=== PATIENT | male | born 1950 | race Caucasian/White ===

== ENCOUNTER → 2019-01-20 08:02 | Outpatient (CLI) | payer OTHER, SELFPAY ==
[2019-01-20 09:24] LABS: Absolute Lymphocyte Count 1.15 X10^3/uL (0.83-4.51); Absolute Neutrophil Count 2.9 X10^3/uL (2.0-7.7); Basophil# 0.02 X10^3/uL; Basophil% 0.4 % (0-1); Eosinophils% 2.2 % (0-5); Hematocrit 46.9 % (40-54); Hemoglobin 15.8 g/dL (13.0-16.5); Lymphocyte # 1.15 X10^3/ul (4.0); Lymphocyte % 25.1 % (19-41); Mean Corp Hgb Conc 33.7 g/dL (32-36); Mean Corpuscular Hgb 31.6 pg (27.0-32.0); Mean Corpuscular Volume 93.8 fL (80-94); Monocyte# 0.42 X10^3/uL; Monocyte% 9.2 % (0-10); NRBC Flagged by Analyzer 0 % (0-5); Neutrophil # 2.88 X10^3/uL (2.7-7.7); Neutrophil % 62.7 % (47-70); Platelet Count 186 K/mm3 (150-450); RBC Distribution Width CV 11.7 % (11.6-14.6); RBC Distribution Width SD 40.1 fl (35.1-43.9); White Blood Count 4.6 K/mm3 (4.4-11.0)
[2019-01-20 10:43] LABS: ALB/GLOB Ratio 1.2 RATIO (0.9-2.4); AST(SGOT) 21 U/L (15-37); Alanine Aminotransfer ALT/SGPT 22 U/L (16-61); Albumin, Serum 3.8 g/dL (3.2-5.0); Alkaline Phosphatase 42 U/L (45-117); Anion Gap 7 (5-15); BUN 22 mg/dL (7-18); BUN/Creat Ratio 22.2 RATIO (10-20); Calcium,Total 8.8 mg/dL (8.5-10.1); Chloride 105 mmol/L (98-107); Cholesterol 183 mg/dL (200); Creatinine, Serum 0.99 mg/dL (0.70-1.30); EST Glomerular Filtration Rate 80 mL/min (>60); Est Glom Filt Rate - Afr Amer 97 mL/min (>60); Globulin 3.1 g/dL (2.2-4.2); Glucose 87 mg/dL (74-106); High Density Lipoprotein 83 mg/dL; PSA,Total - Annual Screen 2.47 ng/mL (0.00-4.00); Potassium 4.2 mmol/L (3.5-5.1); Protein, Total 6.9 g/dL (6.4-8.2); Sodium Level 142 mmol/L (136-145); Triglycerides 41 mg/dL; Very Low Density Lipoprotein 8 mg/dL (5-40)
== END ==
PROVIDERS: Family Provider Family Medicine; PCP Family Medicine; Referring Provider Family Medicine; Visit Provider Family Medicine
DX: Z00.01 Encounter for general adult medical examination with abnormal findings (principal); R06.00 Dyspnea, unspecified; Z12.11 Encounter for screening for malignant neoplasm of colon; R73.01 Impaired fasting glucose; E78.5 Hyperlipidemia, unspecified
CPT/HCPCS: 36415; 80053; 80061; 84153; 85025; G0103

== ENCOUNTER → 2019-02-13 09:34 | Outpatient (CLI) | payer OTHER, SELFPAY ==
--- NOTE | 2019-02-13 09:37 | STEWCON_ITS ---
Reason For Study: CHEST PAIN Stress Results Protocol: Stress Echocardiogram Maximum Predicted HR: 153 bpm Target HR: 130 bpm % Maximum Predicted HR: 89 % DurationHeart Rate Stage (mm:ss) (bpm) BP Comment BASELINE 73 130/805CC DILUTED DEFINITY USED DURING STRESS ASHA PROTOCOL- STAGE 1 3:00 96 140/88NO SX ASHA PROTOCOL- STAGE 2 3:00 108 160/80NO SX ASHA PROTOCOL- STAGE 3 3:00 122 180/88NO SX ASHA PROTOCOL- STAGE 4 1:01 136 / LEG FATIGUE RECOVERY 82 128/78 Stress Duration: 10:01 mm:ss Maximum Stress HR: 136 bpm METS: 13 Baseline Echocardiogram Findings Stress Echo Wall motion Data Resting WM Intermediate WM Stress WM Resting Wall Motion Wall Motion Stress All segments Normal. All segments Hyperkinetic. Ejection Fraction 55 %. Ejection Fraction 70 %. Stress Results Heart rate response: Appropriate Blood pressure response to exercise: Normal resting blood pressure-appropriate response Arrhythmias: Rare PVC during exercise Functional capacity: Good Stopped secondary to: Leg discomfort. EKG Data ECG Baseline: NSR. ECG Stress: No Obvious ECG Changes. Symptoms with Stress No complaint of chest discomfort during exercise or recovery. Interpretation Summary Technically difficult study Contrast injection performed Negative ( Adequate) Stress Echocardiogram Ordering Physician: Yolande Garcia Referring Physician: Yolande Garcia Performed By: Emily Contreras, CONOR, RVT
== END ==
PROVIDERS: Family Provider Family Medicine; PCP Family Medicine; Referring Provider Family Medicine; Visit Provider Family Medicine
DX: R06.09 Other forms of dyspnea (principal)
CPT/HCPCS: 93017; 93350; Q9957; A4216; C8928

== ENCOUNTER 2019-02-25 09:37 | Emergency (ER) | payer OTHER, SELFPAY ==
[2019-02-25 09:40] VITALS: BP 137/85; PULSE 98; RESP 20; TEMP 37.6; O2SAT 93; BMI 21.2
--- NOTE | 2019-02-25 09:51 | RAD_ITS ---
STUDY: X-RAY CHEST REASON FOR EXAM: Male, 68 years old. Cough TECHNIQUE: Frontal and lateral views of the chest COMPARISON: None. FINDINGS: The lungs are clear. There are no pleural effusions. There is no pneumothorax. The heart is normal in size. The visualized osseous structures are within normal limits. RAD/Chest PA and Lateral IMPRESSION: No acute thoracic pathology. Electronically Signed: Williams Mckay, at 10:17 EDT Tel , Service support ,
--- NOTE | 2019-02-25 09:52 | EKG12_ITS ---
Test Reason : Blood Pressure : / mmHG Vent. Rate : 091 BPM Atrial Rate : 091 BPM P-R Int : 168 ms QRS Dur : 086 ms QT Int : 360 ms P-R-T Axes : 076 056 066 degrees QTc Int : 442 ms Normal sinus rhythm Normal ECG Confirmed by LAUREN CRONIN, KONG ([id number]), website/blog editor VERONA CHAVIS ([id number]) on 02/27/2019 11:03:27 AM Referred By: [place]IS Confirmed By:KONG AGUILAR MD
--- NOTE | 2019-02-25 09:52 | ED.VIS.GEN ---
History of Present Illness Chief Complaint: Cough Informant: Patient, Family Onset: Days Context: Gradual Onset Current Severity: Mild Maximum Severity: Moderate Narrative: Patient presents with cough and congestion ongoing for the past 2 to 3 days. He states he was sick about a week ago but improved. He did get a flu shot 4 days ago. Over the past 3 days he has had chest congestion with cough. He has bringing up sputum but does not look at it. He has noted chills at home but no fever. He has no history of COPD or asthma. He does not feels if he is wheezing. He states he only has chest pain with cough. He did have a recent stress test that was unremarkable. Past Medical History - Allergies and Home Meds Allergies/Adverse Reactions: Allergies bee venom protein (honey bee) Allergy (Verified 02/25/19 09:40) Anaphylaxis Penicillins Allergy (Verified 02/25/19 09:40) Swelling Wpjcsxz-Cub-Uhv Reductase Inhibitor Allergy (Verified 02/25/19 09:40) Other LEG CRAMPS, CHEST TIGHTNESS Primary Care Physician: Yolande Garcia MD [Primary Care Provider] - Prior records reviewed: Yes Past Medical History: - - Reviewed Lives: Spouse/ Significant Other Review of Systems General: Reports: Chills. Denies: Fever Eyes: Denies: Visual changes - bilaterally ENT: Reports: Sore throat. Denies: Bilateral ear pain Cardiovascular: Reports: Chest pain - With cough only Respiratory: Reports: Cough, Sputum. Denies: Dyspnea Gastrointestinal: Denies: Abdominal pain, Nausea, Vomiting, Diarrhea Genitourinary: Denies: Dysuria Musculoskeletal: Reports: Myalgias Skin: Denies: Rash Neurological: Denies: Headache Hematologic: Denies: Easy bruising Allergy: Denies: Uticaria Physical Exam Vital Signs/Narrative: Vital Signs Temp Pulse Resp BP Pulse Ox 02/25/19 09:40 99.7 F H 98 20 H 137/85 H 93 Inital Vital Signs reviewed: Yes General: Well nourished, Well developed Head: Normocephalic Eyes: Perrl, EOMI ENT: Moist mucous membranes, TM's clear, - - Mild posterior pharyngeal drainage. Uvula midline. Neck: Supple, Nontender, - - Mild anterior cervical lymphadenopathy bilaterally. Cardiovascular: Regular rate, Regular rhythm Respiratory: No distress, CTA bilaterally Abdomen: Soft, Nontender Extremities: Nontender Skin: Normal color, No rash Neurological: Alert, Oriented x3 Psychological: Normal affect Diagnostic/Tx/Re-eval Chest X-Ray - ED: 2 View, Read by ED Physician, Chronic Changes, No Infiltrates - EKG Initial EKG Interpretation: Sinus Rhythm - Sinus at 91 with no acute ischemia. Normal intervals. - Medical Decision Making X-ray reveals no focal infiltrate. He will be treated with a course of doxycycline along with Mucinex. He will be given albuterol inhaler here. He states his PCP has been talking about getting him an inhaler due to some recent dyspnea on exertion. He will try this to see if it helps with those situations as well. He will be written off work for tomorrow. He is to return for worsening symptoms or concerns. ED Disposition - Plan for ED Patient: Disposition: Home or Assisted Living Diagnosis: Bronchitis Instructions: BRONCHITIS, Antiobiotic Treatment (Adult) Prescriptions: Doxycycline 100 mg PO BID #20 capsule Guaifenesin [Mucinex] 1,200 mg PO BID PRN PRN #[id number] PRN Reason: Congestion Referrals: Yolande Garcia MD [Primary Care Provider] - 1 Week if not improving
[2019-02-25] MEDS: Doxycycline 100 MG CAPSULE PO (10:37)
[2019-02-25] MEDS: guaiFENesin 1,200 MG Tablet 1200 MG PO (10:37)
== END 2019-02-25 10:43 | disposition home or self-care (01) ==
PROVIDERS: Emergency Provider Emergency Medicine; Family Provider Family Medicine; PCP Family Medicine
DX: J40 Bronchitis, not specified as acute or chronic (principal); Z88.0 Allergy status to penicillin; Z88.8 Allergy status to other drugs, medicaments and biological substances
CPT/HCPCS: 71046; 93005; 94640; 99283

== ENCOUNTER 2019-11-05 18:22 | Emergency (ER) | payer MEDICARE, OTHER, SELFPAY ==
[2019-11-05 18:24] VITALS: BP 155/102; PULSE 78; RESP 18; TEMP 37.1; O2SAT 97; BMI 19.8
--- NOTE | 2019-11-05 19:19 | ED.DCSUM_ITS ---
History of Present Illness Chief Complaint: General Illness Detail of Chief Complaint: Left-sided abdominal pain Informant: Patient, Significant Other Onset: Hours - Less than 1 hour ago Context: Sudden Onset Timing: Continuous Quality: Pain Location: Left side of abdomen Current Severity: Mild - Patient reports 70+ percent reduction of pain since onset Maximum Severity: Severe Worsened by: Nothing Relieved by: Nothing Associated Symptoms: No associated symptoms Narrative: Patient is 69-year-old male who walked to the mailbox to get mail at 1800. Patient states he abrupt onset of left-sided abdominal pain. Does have a remote history of ureterolithiasis. He denies history of constipation, diverticulosis or diverticulitis. He denies dysuria, frequency, urgency or hematuria. He denies trauma. He denies rash. He denies fever, chills or night sweats. He denies prior history of pain similar to this. He has no other complaints. He has not taken anything for the pain. Prior similar symptoms: No Recent Illness/Hospitalization: No - Past Medical History (1) History of ureterolithiasis Status: Acute Past Medical History - Allergies and Home Meds Allergies/Adverse Reactions: Allergies bee venom protein (honey bee) Allergy (Verified 11/05/19 18:23) Anaphylaxis Penicillins Allergy (Verified 11/05/19 18:23) Swelling Vtouqle-Pxq-Fem Reductase Inhibitor Allergy (Verified 11/05/19 18:23) Other LEG CRAMPS, CHEST TIGHTNESS maple Allergy (Uncoded 11/05/19 18:23) Anaphylaxis Primary Care Physician: Yolande Garcia MD [Primary Care Provider] - Prior records reviewed: Yes Surgical History: no surgical history Lives: Spouse/ Significant Other Smoking Status: Former smoker Alcohol: None Drugs: None Review of Systems General: Denies: Chills, Fever, Malaise, Sweats Eyes: Denies: Visual changes - bilaterally, Blurred Vision - bilaterally ENT: Denies: Rhinorrhea, Sore throat Cardiovascular: Denies: Chest pain, Palpitations Respiratory: Denies: Dyspnea, Cough, Dyspnea on exertion Gastrointestinal: Reports: Abdominal pain. Denies: Nausea, Vomiting, Diarrhea, Constipation, Melena, Hematochezia, -, - Genitourinary: Denies: Dysuria, Hematuria, Frequency Musculoskeletal: Denies: Myalgias, Arthralgias, Neck pain, Back pain, Swelling, Extremity Pain Skin: Denies: Rash, Wounds Neurological: Denies: Headache, Weakness, Numbness Endocrine: Denies: Polyuria, Polydipsia Hematologic: Denies: Easy bruising, Easy bleeding Physical Exam Vital Signs/Narrative: Vital Signs Temp Pulse Resp BP Pulse Ox 11/05/19 18:24 98.7 F 78 18 155/102 H 97 Inital Vital Signs reviewed: Yes General: Well nourished, Well developed, No Acute Distress Head: Normocephalic, Atraumatic Eyes: Perrl, EOMI. Negative for: Pale conjunctiva, Scleral icterus ENT: Moist mucous membranes, No rhinorrhea, TM's clear Neck: Supple, Nontender, No lymphadenopathy, No JVD Cardiovascular: Regular rate, Regular rhythm, No murmurs, Normal S1, Normal S2 Respiratory: No distress, CTA bilaterally, Chest tenderness - Left side without crepitus or subcutaneous air. Abdomen: Soft, Nondistended, Normal bowel sounds, No masses, Tender. Negative for: Nontender, Guarding, Rebound tenderness, Hyperactive bowel sounds, Hypoactive bowel sounds, Hepatomegaly, Splenomegaly, Mass, Pulsatile mass, Ventral hernia, Umbilical hernia Rectal: Deferred Back: Nontender, Normal Inspection. Negative for: CVA tenderness, Spinal tenderness Extremities: Nontender, No edema. Negative for: Tenderness, Edema Skin: Normal color, No rash Neurological: Alert, Oriented x3, Cranial nerves II-XII grossly intact, Normal Strength, Normal Sensation Psychological: Normal affect, Normal Mood Diagnostic/Tx/Re-eval Laboratory Results 11/05/19 11/05/19 11/05/19 19:21 19:21 20:00 WBC 4.5 RBC 4.48 L Hgb 14.3 Hct 42.4 MCV 94.6 H MCH 31.9 MCHC 33.7 RDW Std Deviation 39.9 RDW Coeff of José Manuel 11.6 Plt Count 218 MPV 9.4 Immature Gran % (Auto) 0.200 Neut % (Auto) 64.4 Lymph % (Auto) 25.2 [place] % (Auto) 7.5 Eos % (Auto) 2.0 Baso % (Auto) 0.7 Absolute Neuts (auto) 2.9 Absolute Lymphs (auto) 1.14 Nucleated RBC % 0 Sodium 139 Potassium 3.7 Chloride 104 Carbon Dioxide 30.0 Anion Gap 5 BUN 21 H Creatinine 0.94 Estim Creat Clear Calc 62.73 Est GFR (MDRD) Af Amer 103 Est GFR (MDRD) Non-Af 85 BUN/Creatinine Ratio 22.3 H Glucose 94 Calcium 8.9 Urine Color Yellow Urine Clarity Clear Urine pH 5.0 Ur Specific [place] 1.020 Urine Protein Negative Urine Glucose (UA) Normal Urine Ketones 5 H Urine Occult Blood Negative Urine Nitrite Negative Urine Bilirubin Negative Urine Urobilinogen Normal Ur Leukocyte Esterase Negative Patient's work-up was unremarkable. He was reexamined at 2014. His abdomen is soft nontender. Patient was informed the cause of his pain is unknown. No imaging was obtained since his work-up to this point is negative and his pain has essentially resolved. - Medical Decision Making Frontal diagnosis includes obstipation, ureterolithiasis, diverticulitis, perforated viscus. Since patient has no guarding or rebound tenderness doubt acute diverticulitis or perforated viscus. Blood work and UA were obtained. ED Disposition - Plan for ED Patient: Disposition: Home or Assisted Living Diagnosis: Left sided abdominal pain of unknown cause Instructions: ED Unknown Causes of Abdominal Pain Male Referrals: Yolande Garcia MD [Primary Care Provider] - As Needed
[2019-11-05 19:22] VITALS: BP 107/89; PULSE 68; RESP 16; O2SAT 98
[2019-11-05 19:37] LABS: Absolute Lymphocyte Count 1.14 X10^3/uL (0.83-4.51); Absolute Neutrophil Count 2.9 X10^3/uL (2.0-7.7); Basophil# 0.03 X10^3/uL; Basophil% 0.7 % (0-1); Eosinophil# 0.09 X10^3/uL; Hematocrit 42.4 % (40-54); Hemoglobin 14.3 g/dL (13.0-16.5); Lymphocyte # 1.14 X10^3/ul (4.0); Lymphocyte % 25.2 % (19-41); Mean Corp Hgb Conc 33.7 g/dL (32-36); Mean Corpuscular Hgb 31.9 pg (27.0-32.0); Mean Corpuscular Volume 94.6 fL (80-94); Mean Platelet Vol. 9.4 fl (6.2-12.0); Monocyte# 0.34 X10^3/uL; Monocyte% 7.5 % (0-10); NRBC Flagged by Analyzer 0 % (0-5); Neutrophil # 2.91 X10^3/uL (2.7-7.7); Neutrophil % 64.4 % (47-70); Platelet Count 218 K/mm3 (150-450); RBC Distribution Width CV 11.6 % (11.6-14.6); RBC Distribution Width SD 39.9 fl (35.1-43.9); Red Blood Count 4.48 M/mm3 (4.6-6.2); White Blood Count 4.5 K/mm3 (4.4-11.0)
[2019-11-05 19:57] LABS: Anion Gap 5 (5-15); BUN 21 mg/dL (7-18); BUN/Creat Ratio 22.3 RATIO (10-20); Calcium,Total 8.9 mg/dL (8.5-10.1); Chloride 104 mmol/L (98-107); Creatinine, Serum 0.94 mg/dL (0.70-1.30); EST Glomerular Filtration Rate 85 mL/min (>60); Est Glom Filt Rate - Afr Amer 103 mL/min (>60); Estimated Creatinine Clearance 62.73 ml/min; Glucose 94 mg/dL (74-106); Potassium 3.7 mmol/L (3.5-5.1); Sodium Level 139 mmol/L (136-145)
[2019-11-05 20:09] LABS: Bacteria 0 SEEN /hpf (None Seen); Color, Urine Yellow (Yellow); Glucose, Dipstick Normal (Normal); Ketone-Dipstick 5 mg/dl (Negative); Leukocyte Esterase-Dipstick Negative /ul (Negative); Mucous, Urine 0 SEEN /hpf (<or=2+); Nitrite-Dipstick Negative (Negative); Occult Blood-Urine Negative /ul (Negative); Protein-Dipstick Negative (Negative); Red Blood Cells-Urine 0 SEEN /hpf (0-5); Squamous Epithelial Cells - UA 0 SEEN /hpf (0-5); Urine Bilirubin Dipstick Negative (Negative); Urine Clarity Clear (Clear); Urine Urobilinogen Normal (Normal); White Blood Cells 0 SEEN /hpf (0-5)
[2019-11-05 20:59] VITALS: BP 179/85
== END 2019-11-05 21:00 | disposition home or self-care (01) ==
PROVIDERS: Emergency Provider Emergency Medicine; PCP Family Medicine
DX: R10.9 Unspecified abdominal pain (principal); Z87.442 Personal history of urinary calculi; Z87.891 Personal history of nicotine dependence; Z88.0 Allergy status to penicillin; Z88.8 Allergy status to other drugs, medicaments and biological substances
CPT/HCPCS: 80048; 81001; 85025; 99283; A4216

== ENCOUNTER → 2022-02-01 | Outpatient (CLI) | payer MEDICARE, OTHER, SELFPAY ==
[2022-02-01 09:58] LABS: Absolute Lymphocyte Count 0.98 X10^3/uL (0.83-4.51); Absolute Neutrophil Count 3.1 X10^3/uL (2.0-7.7); Basophil# 0.02 X10^3/uL; Basophil% 0.4 % (0-1); Eosinophil# 0.05 X10^3/uL; Eosinophils% 1.1 % (0-5); Hematocrit 48.4 % (40-54); Hemoglobin 16.6 g/dL (13.0-16.5); Lymphocyte # 0.98 X10^3/ul (0.83-4.51); Lymphocyte % 21.8 % (19-41); Mean Corp Hgb Conc 34.3 g/dL (32-36); Mean Corpuscular Hgb 31.5 pg (27.0-32.0); Mean Corpuscular Volume 91.8 fL (80-94); Monocyte# 0.32 X10^3/uL; Monocyte% 7.1 % (0-10); NRBC Flagged by Analyzer 0 % (0-5); Neutrophil # 3.12 X10^3/uL (2.7-7.7); Neutrophil % 69.4 % (47-70); Platelet Count 188 K/mm3 (150-450); RBC Distribution Width CV 11.5 % (11.6-14.6); RBC Distribution Width SD 39.1 fl (35.1-43.9); Red Blood Count 5.27 M/mm3 (4.6-6.2); White Blood Count 4.5 K/mm3 (4.4-11.0)
[2022-02-01 10:37] LABS: Hemoglobin A1c 5.3 % (3.8-5.6)
[2022-02-01 10:39] LABS: Vitamin B12 706 pg/mL (211-911)
[2022-02-01 10:49] LABS: ALB/GLOB Ratio 1.2 RATIO (0.9-2.4); AST(SGOT) 19 U/L (15-37); Alanine Aminotransfer ALT/SGPT 20 U/L (16-61); Albumin, Serum 3.9 g/dL (3.2-5.0); Alkaline Phosphatase 47 U/L (45-117); Anion Gap 6 (5-15); BUN 18 mg/dL (7-18); BUN/Creat Ratio 17.5 RATIO (10-20); Chloride 106 mmol/L (98-107); Cholesterol 188 mg/dL (200); Creatinine, Serum 1.03 mg/dL (0.70-1.30); EST Glomerular Filtration Rate 76 mL/min (>60); Est Glom Filt Rate - Afr Amer 92 mL/min (>60); Globulin 3.3 g/dL (2.2-4.2); Glucose 93 mg/dL (74-106); High Density Lipoprotein 71 mg/dL; Potassium 3.8 mmol/L (3.5-5.1); Protein, Total 7.2 g/dL (6.4-8.2); Sodium Level 142 mmol/L (136-145); Thyroid Stim Hormone (TSH) 1.93 uIU/mL (0.358-3.74); Triglycerides 70 mg/dL; Very Low Density Lipoprotein 14 mg/dL (5-40)
== END | disposition home or self-care (01) ==
LOC: LAB 09:38
PROVIDERS: PCP Family Medicine; Visit Provider Family Medicine
DX: R41.3 Other amnesia (principal); E78.5 Hyperlipidemia, unspecified; R73.9 Hyperglycemia, unspecified
CPT/HCPCS: 36415; 80053; 80061; 82607; 83036; 84443; 85025

== ENCOUNTER → 2022-02-08 | Outpatient (CLI) | payer MEDICARE, OTHER, SELFPAY ==
--- NOTE | 2022-02-08 14:43 | MRI_ITS ---
STUDY: MRI BRAIN WITH AND WITHOUT CONTRAST REASON FOR EXAM: Male, 71 years old. MEMORY LOSS, CHRONIC HEADACHE TECHNIQUE: Standardized multiplanar fat and water weighted pulse sequences were obtained. CLARISCAN 14mL was administered for the contrast portion of the examination. COMPARISON: None. FINDINGS: Mild atrophy and moderate periventricular white matter ischemic changes without mass effect or shift.. Normal bilateral basal ganglia. Prominent perivascular space in the right thalamus.. There is no extra-axial fluid accumulation. Normal flow voids within the major intracranial circulation suggesting patency by spin echo criteria. Normal venous enhancement. There is no enhancing intra-axial or extra-axial abnormality. Normal sella turcica, pituitary gland, infundibular stalk, optic chiasm and hypothalamus. Normal tectal plate and pineal gland. Normal midbrain, young and medulla. Normal cerebellum. Normal basal cisterns. Normal bilateral temporal bones. Normal bilateral internal auditory canals. No demonstrated orbital abnormality, within the constraints of a routine brain study. Normal visualized paranasal sinuses. Normal calvarium and skull base. Normal visualized soft tissue structures. Normal visualized upper cervical spine. MRI/Brain W/WO Contrast IMPRESSION: Atrophy and moderate periventricular white matter ischemic changes. No evidence for acute infarct. No evidence for obstructive hydrocephalus or mass. No enhancing lesions following contrast administration Electronically Signed: Fabricio Garcias MD at 16:29 EDT ,
== END | disposition home or self-care (01) ==
LOC: MRI 14:20
PROVIDERS: PCP Family Medicine; Visit Provider Family Medicine
DX: R41.3 Other amnesia (principal)
CPT/HCPCS: 70553; A9575

== ENCOUNTER → 2023-05-16 | Outpatient (CLI) | payer MEDICARE, OTHER, SELFPAY ==
--- OUTSIDE RECORDS SUMMARY | 2023-05-16 12:54 | XMS RPT_ITS | CCD ---
Author Name Unknown Address [address] [place] [address] Organization [facility] Results Test Name Value Interpretation Reference Range Facil ity Summary Purpose Family History No Family History Records Found Advance Directives No Advanced Directives Records Found Additional Source Comments (unrecognized sect ion and content) No Status Records Found INFORMATION SOURCE (unrecogn ized section and content) FOR RECORDS PERTAINING TO PATIENTS WHO ARE OR HAVE BEEN ENROLLED IN A CHEMICAL DEPENDENCY/SUBSTANCEABUSE PROGRAM, SOME INFORMATION MAY BE OMITTED. This clinical summary was aggregated from multiple sources. Caution should be exercised in using it in the provision of clinical care. This summary normalizes information from multiple sources, and as a consequence, information in this document may materially change the coding, format and clinical context of patient data. In addition, data may be omitted in some cases. CLINICAL DECISIONS SHOULD BE BASED ON THE PRIMARY CLINICAL RECORDS. [employer]. provides no warranty or guarantee of the accuracy or completeness of information in this document.
== END | disposition home or self-care (01) ==
LOC: SL 12:21
PROVIDERS: PCP Family Medicine; Referring Provider Family Medicine; Visit Provider Family Medicine
DX: G47.00 Insomnia, unspecified (principal); R51.9 Headache, unspecified; G47.30 Sleep apnea, unspecified
CPT/HCPCS: 95806

== ENCOUNTER → 2023-06-09 | Outpatient (CLI) | payer MEDICARE, OTHER, SELFPAY ==
--- NOTE | 2023-06-09 10:05 | ECHOD_ITS ---
Reason For Study: central sleep apnea Procedure This was a 2D Doppler, Color Flow transthoracic echocardiogram. The study was technically difficult. Respiratory interference. Exam performed in department. Left Ventricle Normal size and thickness. The left ventricular ejection fraction is 65 %. Normal diastology for age. Right Ventricle Normal right ventricle. Atria The left and right atria are normal. Mitral Valve Trivial mitral valve insufficiency. Tricuspid Valve Mild tricuspid valve insufficiency. Normal pulmonary artery pressure. Aortic Valve Trisinus/trileaflet aortic valve. Mild (1+) aortic valve insufficiency. Pulmonic Valve The pulmonic valve is not well visualized. Great Vessels Mildly dilated aortic root. Pericardium/Pleural No pericardial effusion. MMode/2D Measurements & Calculations LVIDd: 4.6 cm IVSd: 0.75 cm Ao root diam: 4.2 cm LVIDs: 3.1 cm LVPWd: 0.94 cm RVDd: 3.2 cm FS: 32.9 % LAV(MOD-bp): 47.7 ml LVAd ap4: 30.4 cm2 LVAd ap2: 25.1 cm2 LAV(MOD-bp) Indexed: 26.8 ml/m2 LVLd ap4: 8.3 cm LVLd ap2: 7.0 cm LAV(MOD-sp2): 46.8 ml EDV(MOD-sp4): 93.2 ml EDV(MOD-sp2): 73.5 ml LAV(MOD-sp4): 44.4 ml EDV(sp4-el): 93.9 ml EDV(sp2-el): 76.3 ml LVAs ap4: 15.1 cm2 LVAs ap2: 13.4 cm2 LVLs ap4: 6.4 cm LVLs ap2: 5.6 cm ESV(MOD-sp4): 30.2 ml ESV(MOD-sp2): 27.4 ml ESV(sp4-el): 30.2 ml ESV(sp2-el): 27.2 ml EF(MOD-sp4): 67.7 % EF(MOD-sp2): 62.7 % EF(sp4-el): 67.8 % SV(MOD-sp4): 63.1 ml SV(MOD-sp2): 46.1 ml SV(sp4-el): 63.7 ml LA dimension(2D): 3.7 cm LA A4 area: 16.8 cm2 RA A4 area: 16.4 cm2 TAPSE: 2.8 cm Time Measurements MV dec time: 0.26 sec Doppler Measurements & Calculations MV E max chris: 57.2 cm/sec Lat Peak E' Chris: 10.5 cm/sec Med Peak E' Chris: 7.4 cm/sec MV A max chris: 71.7 cm/sec E/E' lat: 5.4 E/E' med: 7.7 MV E/A: 0.80 MV V2 max: 82.6 cm/sec MV P1/2t max chris: 71.4 cm/sec Ao V2 max: 108.9 cm/sec MV max P.7 mmHg MV P1/2t: 93.2 msec Ao max P.8 mmHg MV V2 mean: 48.2 cm/sec MV dec slope: 224.5 cm/sec2 Ao V2 mean: 74.9 cm/sec MV mean P.0 mmHg Ao mean P.6 mmHg MV V2 VTI: 27.5 cm MVA(P1/2t): 2.4 cm2 Ao V2 VTI: 27.5 cm AV (velocity ratio): 0.75 AI max chris: 423.4 cm/sec LV V1 max: 87.0 cm/sec PA V2 max: 76.4 cm/sec AI max P.0 mmHg LV V1 max P.0 mmHg PA V2 mean: 52.4 cm/sec AI dec slope: 141.9 cm/sec2 LV V1 mean P.7 mmHg AI P1/2t: 873.7 msec LV V1 mean: 60.3 cm/sec LV V1 VTI: 20.7 cm TR max chris: 264.1 cm/sec TR max P.9 mmHg ECHO/Echo Complete Interpretation Summary The left ventricular ejection fraction is 65 %. Mild (1+) aortic valve insufficiency. Mildly dilated aortic root. Mild tricuspid valve insufficiency. Ordering Physician: Yolande Garcia Referring Physician: Yolande Garcia Performed By: Emily Contreras, CONOR, RVT
== END | disposition home or self-care (01) ==
PROVIDERS: PCP Family Medicine; Referring Provider Family Medicine; Visit Provider Family Medicine
DX: G47.31 Primary central sleep apnea (principal)
CPT/HCPCS: 93306

== ENCOUNTER → 2023-06-21 | Outpatient (CLI) | payer MEDICARE, OTHER, SELFPAY ==
--- OUTSIDE RECORDS SUMMARY | 2023-06-21 21:05 | XMS RPT_ITS | CCD ---
Author Name Unknown Address [address] [place] [address] Organization [facility] Results Test Name Value Interpretation [...] BE BASED ON THE PRIMARY CLINICAL RECORDS. [employer]. provides no warranty or guarantee of the accuracy or completeness of information in this document.
== END | disposition home or self-care (01) ==
LOC: SL 20:11
PROVIDERS: PCP Family Medicine; Referring Provider Family Medicine; Visit Provider Family Medicine
DX: G47.31 Primary central sleep apnea (principal)
CPT/HCPCS: 95811

== ENCOUNTER → 2023-07-21 | Outpatient (CLI) | payer MEDICARE, OTHER, SELFPAY | END | disposition home or self-care (01) | LOC: SL 13:10 | PROVIDERS: PCP Family Medicine; Referring Provider Family Medicine; Visit Provider Family Medicine | DX: Z46.89 Encounter for fitting and adjustment of other specified devices (principal) ==

== ENCOUNTER 2023-10-20 13:48 | Emergency (ER) | payer MEDICARE, OTHER, SELFPAY ==
[2023-10-20 13:49] VITALS: BP 127/74; PULSE 94; RESP 15; TEMP 36.7; O2SAT 96; BMI 20.5
[2023-10-20 14:33] VITALS: BP 124/71; PULSE 80; RESP 14; TEMP 37.7; O2SAT 97
--- NOTE | 2023-10-20 14:47 | CT_ITS ---
STUDY: CT ABDOMEN AND PELVIS WITH CONTRAST REASON FOR EXAM: Male, 73 years old. Abdominal pain. Possible hernia. RADIATION DOSAGE (If Supplied By Facility): CTDIvol = ( 11.72 ) mGy, DLP = ( 465.44 ) mGycm TECHNIQUE: Transaxial images were obtained from the dome of the diaphragm to the symphysis pubis without oral contrast. IV 100mL Isovue-300 was administered. Sagittal and coronal images were reconstructed. Individualized dose optimization techniques were used for this CT. COMPARISON: None. FINDINGS: The visualized lung bases are unremarkable. Coronary artery calcification. Scattered small hepatic cysts. Normal gallbladder and extrahepatic biliary system. Normal spleen. Normal pancreas. Normal bilateral adrenal glands. Bilateral parapelvic cysts. Normal visualized stomach. Normal small intestine. There are multiple colonic diverticula consistent with diverticulosis. The appendix is visualized and appears normal. There is diffuse atherosclerotic calcification of the abdominal aorta, without a demonstrated aneurysm. Normal inferior vena cava. Normal retroperitoneum. Mildly distended urinary bladder. Several tiny calcific densities are seen at the base of the bladder which may represent calculi. The prostate is enlarged. It measures 4 cm x 4.4 cm. This causes indentation of the bladder base. Small bilateral inguinal lymph nodes. No evidence of inguinal hernia. The patient is status post repair of a right inguinal hernia with mesh. There are diffuse degenerative changes of the visualized lumbar spine. Dextroscoliosis. CT/Abdomen/Pelvis W IV Cont ONLY IMPRESSION: No evidence of hernia. Distended urinary bladder. Tiny stones are seen at the bladder base. Prostatic enlargement. Electronically Signed: Barron Vogt MD at 15:23 EDT ,
[2023-10-20 14:48] LABS: Absolute Lymphocyte Count 0.37 X10^3/uL (0.83-4.51); Absolute Neutrophil Count 3.5 X10^3/uL (2.0-7.7); Basophil# 0.02 X10^3/uL; Basophil% 0.5 % (0-1); Hematocrit 41.7 % (40-54); Hemoglobin 14.3 g/dL (13.0-16.5); Lymphocyte # 0.37 X10^3/ul (0.83-4.51); Lymphocyte % 8.4 % (19-41); Mean Corp Hgb Conc 34.3 g/dL (32-36); Mean Corpuscular Volume 90.3 fL (80-94); Mean Platelet Vol. 9.7 fl (6.2-12.0); Monocyte# 0.52 X10^3/uL; Monocyte% 11.8 % (0-10); NRBC Flagged by Analyzer 0 % (0-5); Neutrophil # 3.49 X10^3/uL (2.7-7.7); Neutrophil % 79.3 % (47-70); POSITIVE DIFFERENTIAL YES; Platelet Count 148 K/mm3 (150-450); RBC Distribution Width CV 11.5 % (11.6-14.6); RBC Distribution Width SD 38.5 fl (35.1-43.9); Red Blood Count 4.62 M/mm3 (4.6-6.2); White Blood Count 4.4 K/mm3 (4.4-11.0)
[2023-10-20 14:57] LABS: AST(SGOT) 24 U/L (15-37); Alanine Aminotransfer ALT/SGPT 24 U/L (16-61); Albumin, Serum 3.2 g/dL (3.2-5.0); Alkaline Phosphatase 39 U/L (45-117); Anion Gap 5 (5-15); BUN 26 mg/dL (7-18); BUN/Creat Ratio 26.3 RATIO (10-20); Calcium,Total 8.6 mg/dL (8.5-10.1); Chloride 104 mmol/L (98-107); Creatinine, Serum 0.99 mg/dL (0.70-1.30); EST Glomerular Filtration Rate 79 mL/min (>60); Est Glom Filt Rate - Afr Amer 96 mL/min (>60); Estimated Creatinine Clearance 58.42 ml/min; Globulin 3.3 g/dL (2.2-4.2); Glucose 104 mg/dL (74-106); Lipase 26 U/L (13-75); Potassium 3.5 mmol/L (3.5-5.1); Protein, Total 6.5 g/dL (6.4-8.2); Sodium Level 135 mmol/L (136-145)
[2023-10-20 15:00] VITALS: BP 124/82; PULSE 74; RESP 18; TEMP 36; O2SAT 97
--- NOTE | 2023-10-20 15:02 | ED.VIS.GI ---
HPI HPI - GI History of Present Illness Chief Complaint: Abd Pain Narrative Narrative: 73-year-old male presenting with lower right-sided abdominal pain. He states also hurts in his right groin. Patient denies any injury. He states the pain started yesterday. Denies diarrhea, nausea, vomiting. He states that walking makes it worse and sitting and resting makes it better. Distant history 30 years ago of ventral hernia repair. No history of bowel obstruction. No urinary complaints. PFSH PFSH Medical History History of ureterolithiasis Home Medications ?Medication ?Instructions ?Recorded ?Last Taken ?Type B12 Complex 1 tab PO DAILY 02/25/19 Unknown History Potassium 1 tab PO DAILY 02/25/19 Unknown History multivitamin 1 ea PO DAILY 02/25/19 Unknown History Allergy/AdvReac Type Severity Reaction Status Date / Time bee venom protein (honey bee) Allergy Anaphylaxis Verified 10/20/23 13:51 Environmental Allergies: Allergy Anaphylaxis Verified 10/20/23 13:51 Uncoded Penicillins Allergy Swelling Verified 10/20/23 13:51 Bvvnfrh-OPC-JfR Reductase Allergy Other Verified 10/20/23 13:51 Inhibitor (Nqgynip-Vgb-Lhu Reductase Inhibitor) Social History Smoking Status: Former smoker EXAM Physical Exam Const Vital Signs: 10/20/23 13:49 10/20/23 14:33 10/20/23 15:00 Temperature 98.1 F 100 F H 96.8 F L Temperature Source Temporal Oral Temporal Pulse Rate 94 80 74 Respiratory Rate 15 14 18 Blood Pressure 127/74 H 124/71 H 124/82 H Blood Pressure Mean 91 88 96 Pulse Ox 96 97 97 Oxygen Delivery Method Room Air Room Air Room Air Positive well nourished General Appearance ED: NAD; Negative for pallor HEENT Reports moist mucous membranes normocephalic and atraumatic Eyes PERRL and EOMs intact bilaterally Resp normal respiratory effort Cardio regular rate and regular rhythm GI GI Narrative: Right inguinal tenderness. No obvious mass Palpation: tender RLQ Neuro CN's II-XII intact bilaterally Sensorium / Orientation: alert Motor Exam: strength 5/5 throughout Psych mental status grossly normal Skin Skin Narrative: Area of erythema on the left lower abdomen approximately 6 x 4 cm. It is nontender to palpation. General Skin Exam: Negative for jaundice or pallor MDM MDM MDM Narrative Medical decision making narrative: 73-year-old male with abdominal pain. Patient presenting with right flank pain. Differential includes colitis, diverticulitis, gastritis, pancreatitis, acute cholecystitis, constipation, appendicitis, UTI, pyelonephritis, calculi, ureteral calculi, obstruction, malignancy, dehydration, electrolyte abnormalities. CBC will be obtained to assess white blood cell count, hemoglobin, platelets. CMP to assess renal function, electrolytes, liver function, glucose. Lipase to assess for pancreatitis. Urinalysis to assess for UTI. Patient declines analgesia at this time. Patient also has a small rash on the left side of his abdomen which is nontender. He states he has had ticks on him but not of extended duration. He did not notice the rash until his change in the gown and has not vomited. I was about 4.4. Hemoglobin 14.3. Platelets low at 148. Renal function and electrolytes within normal limits. LFTs are normal. Lipase negative. Urinalysis negative for infection but does show [address] of the abdomen pelvis with IV contrast is obtained and shows tiny stones at the bladder base and the patient is having right-sided pain with minimal tenderness on examination. He does not have CVA tenderness. He does have a history of kidney stones. He declines analgesia and states that he will pass these on his own with Tylenol and ibuprofen. Return precautions discussed. Impression: 1. Abdominal pain 2. Bladder calculi Lab Data Attestation: I reviewed the patient's lab results. Labs: Laboratory Results - last 24 hr 10/20/23 10/20/23 14:30 15:03 WBC 4.4 RBC 4.62 Hgb 14.3 Hct 41.7 MCV 90.3 MCH 31.0 MCHC 34.3 RDW Std Deviation 38.5 RDW Coeff of José Manuel 11.5 L Plt Count 148 L MPV 9.7 Immature Gran % (Auto) 0.000 Neut % (Auto) 79.3 H Lymph % (Auto) 8.4 L [place] % (Auto) 11.8 H Eos % (Auto) 0.0 Baso % (Auto) 0.5 Absolute Neuts (auto) 3.5 Absolute Lymphs (auto) 0.37 L Nucleated RBC % 0 Sodium 135 L Potassium 3.5 Chloride 104 Carbon Dioxide 26.0 Anion Gap 5 BUN 26 H Creatinine 0.99 Estim Creat Clear Calc 58.42 Est GFR (MDRD) Af Amer 96 Est GFR (MDRD) Non-Af 79 BUN/Creatinine Ratio 26.3 H Glucose 104 Calcium 8.6 Total Bilirubin 1.10 H AST 24 ALT 24 Alkaline Phosphatase 39 L Total Protein 6.5 Albumin 3.2 Globulin 3.3 Albumin/Globulin Ratio 1.0 Lipase 26 Urine Color Yellow Urine Clarity Sl. Cloudy Urine pH 6.0 Ur Specific [place] 1.025 Urine Protein 30 H Urine Glucose (UA) Normal Urine Ketones 5 H Urine Occult Blood 25 H Urine Nitrite Negative Urine Bilirubin Negative Urine Urobilinogen Normal Ur Leukocyte Esterase 25 H Urine RBC 0-5 SEEN Urine WBC 0-5 SEEN Ur Squamous Epith Cells 0-5 SEEN Ur Renal Epithelial Cell 0-5 SEEN Urine Bacteria 3+ Urine Mucus 1+ Radiography Diagnostic Testing: Clinical Impression(s) from Imaging Studies Abdomen/Pelvis CT 10/20/23 14:47 IMPRESSION: No evidence of hernia. Distended urinary bladder. Tiny stones are seen at the bladder base. Prostatic enlargement. Electronically Signed: Barron Vogt MD at 15:23 EDT , Discharge Plan Triage Chief Complaint: Abd Pain ED Provider: Rk Owens Dx/Rx/DC Orders Instructions: ED Kidney Stone, Passed, ED Abdominal Pain Unkn Cause Male... Prescriptions: No Action B12 Complex 1 tab PO DAILY multivitamin 1 EACH tablet 1 ea PO DAILY Potassium 1 tab PO DAILY Primary Care Provider: Yolande Garcia Referrals: Yolande Garcia MD [Primary Care Provider] - Print Language: Macedonian Disposition Disposition: Home, Self Care
[2023-10-20 15:12] LABS: Color, Urine Yellow (Yellow); Glucose, Dipstick Normal (Normal); Ketone-Dipstick 5 mg/dl (Negative); Leukocyte Esterase-Dipstick 25 /ul (Negative); Nitrite-Dipstick Negative (Negative); Occult Blood-Urine 25 /ul (Negative); Protein-Dipstick 30 mg/dl (Negative); Specific Gravity, Urine 1.025 (1.002-1.030); Urine Bilirubin Dipstick Negative (Negative); Urine Clarity Sl. Cloudy (Clear); Urine Urobilinogen Normal (Normal)
--- NOTE | 2023-10-20 15:13 | ED.RN ---
MD notified of pt's bullseye rash on left flank.
[2023-10-20 15:19] LABS: Mucous, Urine 1+ /hpf (<or=2+)
[2023-10-20 15:20] LABS: Bacteria 3+ /hpf (None Seen)
[2023-10-20 15:22] LABS: Renal Epithelial Cells 0-5 SEEN /hpf (0-5); White Blood Cells 0-5 SEEN /hpf (0-5)
[2023-10-20 15:23] LABS: Red Blood Cells-Urine 0-5 SEEN /hpf (0-5); Squamous Epithelial Cells - UA 0-5 SEEN /hpf (0-5)
[2023-10-20 16:36] VITALS: BP 119/71; PULSE 87; RESP 16; TEMP 36.7; O2SAT 97
[2023-10-25 15:08] LABS: Lyme Scn Total Ab w/Rflx Negative (Negative)
== END 2023-10-20 16:37 | disposition home or self-care (01) ==
PROVIDERS: Emergency Provider Student in an Organized Health Care Education/Training Program; PCP Family Medicine; Visit Provider Student in an Organized Health Care Education/Training Program
DX: R10.9 Unspecified abdominal pain (principal); N21.0 Calculus in bladder; Z87.891 Personal history of nicotine dependence; Z87.442 Personal history of urinary calculi
CPT/HCPCS: 74177; 80053; 81001; 83690; 85025; 86618; 99284; Q9967; A4216

== ENCOUNTER 2024-03-13 20:11 | Emergency (ER) | payer MEDICARE, OTHER, SELFPAY ==
[2024-03-13] VITALS (13 sets, daily range): BP systolic 116–153; BP diastolic 64–120; PULSE 92–99; RESP 18–26; TEMP 36.7; O2SAT 93–96; BMI 22.8
--- NOTE | 2024-03-13 20:13 | EKG12_ITS ---
Test Reason : DYSRHYTHMIA Blood Pressure : */* mmHG Vent. Rate : 100 BPM Atrial Rate : 100 BPM P-R Int : 198 ms QRS Dur : 88 ms QT Int : 370 ms P-R-T Axes : 62 16 55 degrees QTcB Int : 477 ms Normal sinus rhythm Normal ECG Confirmed by LAUREN CRONIN, KONG ([id number]), editor in chief SON RODAS ([id number]) on 03/14/2024 8:57:29 AM Referred By: Confirmed By: KONG AGUILAR MD
--- NOTE | 2024-03-13 20:13 | CT_ITS ---
We are attempting to reach an attending provider to discuss findings. An addendum with communication details will be sent when the communication is complete. INDICATION: Neuro deficit, acute, stroke suspected EXAMINATION: CTA CAROTIDS AND BRAIN - CTA Head and Neck Stroke W/ Contrast (and W/O if performed) TECHNIQUE: Routine CTA of the head and neck was performed with post processing of the angiographic images for volumetric reconstructions. In addition, images were obtained of the [place] of Barr. Nascet criteria using the distal ICAs for comparison were used for evaluation of stenoses. 3D reconstructions were reviewed. A radiation dose optimization technique was used for this scan. IV Contrast dosage and agent: 100 cc [id number] COMPARISON: Noncontrast head CT same date FINDINGS: --NECK: AORTIC ARCH AND BRANCHES: Vessel origins patent. RIGHT CCA: No occlusion, significant stenosis or dissection. RIGHT ICA: Occluded at its origin with nonpatent vascular stent in place. Distal flow reconstituted at the base of the skull. LEFT CCA: No occlusion, significant stenosis or dissection. LEFT ICA: No occlusion, significant stenosis or dissection. RIGHT VERTEBRAL ARTERY: No occlusion, significant stenosis or dissection. LEFT VERTEBRAL ARTERY: No occlusion, significant stenosis or dissection. NECK SOFT TISSUES: Submillimeter nodule right lobe thyroid. LUNG APICES: Clear. BONES: Degenerative changes. --HEAD: --Anterior circulation: ICAs: No significant stenosis at the intracranial/visualized segments. ACAs: No significant stenosis at the visualized segments. ACOM: Not seen. MCAs: Occlusion of the right M1 segment with decreased flow reconstituted into the M2 branches. --Posterior circulation: PCOMs: Patent bilaterally. simplex printer installer: No significant stenosis at the visualized segments. BASILAR ARTERY: No significant stenosis. VERTEBRAL ARTERIES: No significant stenosis at the intradural/visualized segments. No evidence of intracranial aneurysm or vascular malformation. CT/STROKE CTA Head AND Neck W/Con IMPRESSION: Occlusion of the right MCA with decreased perfusion distal to the occlusion. Occlusion of the right ICA at its origin with distal flow reconstituted at the base of the skull. Electronically Signed: Michael Luke MD at 20:48 EST ,
--- NOTE | 2024-03-13 20:13 | ED.VIS.STROK ---
HPI History of Present Illness Chief Complaint: Stroke Alert Informant: patient and EMS Narrative Narrative: EMS presenting with a prehospital stroke alert on patient and was last seen normal about 50 minutes ago (approx 1920), and then was found collapsed outside, 911 was called, he is having left-sided weakness and hemineglect along with some aphasia according to EMS. He has vomited once. Patient denies chest pain, headache, pain elsewhere. He denies hitting his head when he fell, stating that he was trying to lay himself down because he felt like something was wrong on his left leg, followed by his left arm. confirms that when he left the house to walk outside, to get the mail, he was normal. He takes no prescription medications long-term/daily, he sees his doctor once a year for routine health checks. He takes vitamins and potassium. [facility] Medical History History of ureterolithiasis Home Medications ?Medication ?Instructions ?Recorded ?Last Taken ?Type B12 Complex 1 tab PO DAILY 02/25/19 Unknown History Potassium 1 tab PO DAILY 02/25/19 Unknown History multivitamin 1 ea PO DAILY 02/25/19 Unknown History Allergy/AdvReac Type Severity Reaction Status Date / Time bee venom protein (honey bee) Allergy Anaphylaxis Verified 03/13/24 20:22 Environmental Allergies: Allergy Anaphylaxis Verified 03/13/24 20:22 Uncoded Penicillins Allergy Swelling Verified 03/13/24 20:22 Xvhvjzy-BUZ-LoX Reductase Allergy Other Verified 03/13/24 20:22 Inhibitor (Nansnpk-Uig-Rjq Reductase Inhibitor) Social History Smoking Status: Former smoker ROS ROS ED Review of Systems ROS Unobtainable: other Details: Due to aphasia Constitutional Constitutional ED: Denies chills or fever(s) Cardiovascular Cardiovascular: Denies chest pain Gastrointestinal Gastrointestinal: Reports nausea and vomiting; Denies abdominal pain Genitourinary Genitourinary ED: Denies dysuria or hematuria Musculoskeletal Musculoskeletal: Denies back pain or neck pain Integumentary Denies abscess or rash Neurologic Neurologic: Reports paresthesias and weakness; Denies headache(s) EXAM Physical Exam Const Vital Signs: 03/13/24 20:13 03/13/24 20:15 03/13/24 20:25 Temperature 98.1 F Temperature Source Temporal Pulse Rate 93 Respiratory Rate 18 Blood Pressure 137/64 H Blood Pressure Mean 88 Blood Pressure Source Pulse Ox Oxygen Delivery Method Room Air 03/13/24 20:28 03/13/24 20:35 03/13/24 20:35 Temperature Temperature Source Pulse Rate 95 99 Respiratory Rate 22 H 26 H Blood Pressure 134/98 H 134/90 H Blood Pressure Mean 104 Blood Pressure Source Monitor Pulse Ox 94 93 Oxygen Delivery Method Room Air Positive well nourished and well developed Constitutional Narrative: Alert, dry heaving. Follows commands. General Appearance ED: well developed and NAD HEENT Reports moist mucous membranes normocephalic and atraumatic Eyes PERRL and EOMs intact bilaterally Neck full ROM and supple Resp normal respiratory effort and clear to auscultation bilaterally Cardio regular rate, regular rhythm and no murmurs GI non-tender and non-distended Auscultation: normoactive bowel sounds Palpation: soft Back/Spine no CVA tenderness General Back: other FROM Extremity normal to inspection General Extremety ED: Negative for edema, pulses abnormal or tenderness General Extremity: Negative for edema or pulses abnormal Neuro Neuro Narrative: See attached NIH Sensorium / Orientation: awake and alert Skin no rashes or lesions noted and no wounds NIHSS NIHSS Initial: 1a Level of Consciousness: 0 1b LOC Questions (Score 2 if aphasic/stupor): 2 1c LOC Commands (Only score 1st attempt): 0 2 Best Gaze (If aphasic, use reflexive mvmts.): 1 3 Visual: 2 4 Facial Palsy: 1 5 Motor Arm Right (UN = amputation/fusion): 0 5 Motor Arm Left: 4 6 Motor Leg Right: 0 6 Motor Leg Left: 4 7 Limb ataxia (Only + if out of proportion): 0 8 Sensory (Aphasia/stupor=0 or 1, coma=2): 2 9 Best Language: 2 10 Dysarthria (mute, coma=2, intubated=UN): 1 11 Extinction and Inattention (only scored if +): 2 Total Score: 21 MDM MDM MDM Narrative Medical decision making narrative: I saw and evaluated the patient in the ambulance bay with EMS, and agree with the stroke alert, patient directly to CT and I reevaluated him further when he arrived back in the room. I reviewed the images of the plain CT on my interpretation there is no acute hemorrhage show I ordered TNK. Discussed this thoroughly with family, as well as risks and alternatives and they agree the benefits outweigh the risks as does the patient. Discussed with radiology regarding the plain CT, looks like he probably has a right MCA sign, suggesting an LVO on the right MCA which would explain his clinical symptoms and syndrome. This was confirmed by the CTA reviewed those images and report as well and I agree with it. Discussed with the radiologist again. Discussed with neurology at [facility] who agrees with my plan to treat him with TNK and transfer him to [facility]. wants him to go to [facility]. Accepted there by Dr. Humphrey, neurology - to go to the ED. History & Record Review Discussion w/independent historian: EMS personnel, Patient and Family Additional record(s) reviewed:: No prior records Lab Data Attestation: I reviewed the patient's lab results. Labs: Laboratory Results - last 24 hr 03/13/24 20:00 WBC 8.7 RBC 4.39 L Hgb 13.6 Hct 40.3 MCV 91.8 MCH 31.0 MCHC 33.7 RDW Std Deviation 40.4 RDW Coeff of José Manuel 12.1 Plt Count 287 MPV 9.1 Immature Gran % (Auto) 0.200 Neut % (Auto) 62.9 Lymph % (Auto) 27.3 [place] % (Auto) 7.4 Eos % (Auto) 1.6 Baso % (Auto) 0.6 Absolute Neuts (auto) 5.4 Absolute Lymphs (auto) 2.36 Nucleated RBC % 0 PT 13.7 INR 1.1 APTT 28.4 Sodium 141 Potassium 3.8 Chloride 107 Carbon Dioxide 32.0 Anion Gap 2 L BUN 25 H Creatinine 1.00 Estim Creat Clear Calc 64.22 Est GFR (MDRD) Af Amer 94 Est GFR (MDRD) Non-Af 78 BUN/Creatinine Ratio 25.0 H Glucose 114 H Calcium 8.4 L Troponin I High Sens 4 Radiography Diagnostic Testing: Clinical Impression(s) from Imaging Studies Head/Neck CTA 03/13/24 20:13 IMPRESSION: Occlusion of the right MCA with decreased perfusion distal to the occlusion. Occlusion of the right ICA at its origin with distal flow reconstituted at the base of the skull. Electronically Signed: Michael Luke MD at 20:48 EST , Brain CT 03/13/24 20:14 IMPRESSION: Volume loss with chronic white matter changes. No acute intracranial findings. Unilateral hyperdense right MCA which may indicate thrombus versus mineralization. Electronically Signed: Michael Luke MD at 20:30 EST , ADDENDUM: 03/13/242038 IMPRESSION: Volume loss with chronic white matter changes. No acute intracranial findings. Unilateral hyperdense right MCA which may indicate thrombus versus mineralization. N.B. : The above Results were Read Back by Michael Luke MD to Shorty Hutchison MD, and understanding confirmed on 03/13/2024 20:32:27 (ET). Electronically Signed: Michael Luke MD at 20:30 EST , Rhythm Strip Rhythm Strip: Sinus Rhythm Rate: 95 Ectopy: None EKG Initial EKG: Attestation: I personally reviewed and interpreted this EKG as follows: Interpretation: Sinus Rhythm and No Acute Injury Pattern Comments: Nml axis & intervals; nml EKG Management Discussion w/another healthcare provider: Disc Pad Grinder (marlyn, see above) and Radiologist Stroke Documentation Questions Stroke Team Activated: Yes (Prehospital) Reviewed Inclusion/Exclusion criteria: Yes Was Patient considered for Endovascular Intervention?: Yes-CTA +,PT transferred for further eval of endovascular intervention IV Thrombolytic Administered: Yes No contraindications from thrombolytic administration: Yes Risks, Benefits, Alternatives Discussed: Yes (Family x 2) Critical Care Time Critical Care Time: Yes Critical care time (excluding procedures): 30-74 minutes (37 min), Including time spent:, Discussing w/Patient &/or Family/It Security Architect, Discussing w/Consultants, Arranging Admission or Transfer and Performing Direct Patient Care at Bedside Discharge Plan Triage Chief Complaint: Stroke Alert ED Provider: Shorty Hutchison Dx/Rx/DC Orders Clinical Impression: Acute ischemic right MCA stroke Prescriptions: No Action B12 Complex 1 tab PO DAILY multivitamin 1 EACH tablet 1 ea PO DAILY Potassium 1 tab PO DAILY Primary Care Provider: Yolande Garcia Referrals: Yolande Garcia MD [Primary Care Provider] - Print Language: Ghanaian Disposition Disposition: Acute Care Hospital
--- NOTE | 2024-03-13 20:14 | CT_ITS ---
We are attempting to reach an attending provider to discuss findings. An addendum with communication details will be sent when the communication is complete. INDICATION: Neuro deficit, acute, stroke suspected EXAMINATION: CT BRAIN - CT Head or Brain W/O Contrast Injection TECHNIQUE: Multiple axial images were obtained of the head without intravenous contrast. A radiation dose optimization technique was used for this scan. IV Contrast dosage and agent: None. COMPARISON: None. FINDINGS: BRAIN PARENCHYMA: No intra- or extra-axial hemorrhage. No evidence of acute infarct. No intracranial mass or mass effect. There is preservation of the smith/white matter interface. Unilateral hyperdense right MCA. Volume loss with low attenuation of the periventricular white matter typical of chronic small vessel disease. CSF SPACES: Appropriate for age. No hydrocephalus. Basal cisterns are patent. CALVARIUM, SKULL BASE, PARANASAL SINUSES AND MASTOID AIR CELLS: Clear. No discrete lytic or blastic abnormalities. CT/STROKE Brain/Head without Cont IMPRESSION: Volume loss with chronic white matter changes. No acute intracranial findings. Unilateral hyperdense right MCA which may indicate thrombus versus mineralization. Electronically Signed: Michael Luke MD at 20:30 EST ,
[2024-03-13 20:25] LABS: Absolute Lymphocyte Count 2.36 X10^3/uL (0.83-4.51); Absolute Neutrophil Count 5.4 X10^3/uL (2.0-7.7); Basophil# 0.05 X10^3/uL; Basophil% 0.6 % (0-1); Eosinophil# 0.14 X10^3/uL; Eosinophils% 1.6 % (0-5); Hematocrit 40.3 % (40-54); Hemoglobin 13.6 g/dL (13.0-16.5); Lymphocyte # 2.36 X10^3/ul (0.83-4.51); Lymphocyte % 27.3 % (19-41); Mean Corp Hgb Conc 33.7 g/dL (32-36); Mean Corpuscular Volume 91.8 fL (80-94); Mean Platelet Vol. 9.1 fl (6.2-12.0); Monocyte# 0.64 X10^3/uL; Monocyte% 7.4 % (0-10); NRBC Flagged by Analyzer 0 % (0-5); Neutrophil # 5.44 X10^3/uL (2.7-7.7); Neutrophil % 62.9 % (47-70); Platelet Count 287 K/mm3 (150-450); RBC Distribution Width CV 12.1 % (11.6-14.6); RBC Distribution Width SD 40.4 fl (35.1-43.9); Red Blood Count 4.39 M/mm3 (4.6-6.2); White Blood Count 8.7 K/mm3 (4.4-11.0)
[2024-03-13] MEDS: Ondansetron 4 MG/2 ML Vial IV ×3 (20:28→21:10)
[2024-03-13] MEDS: 0.9% Saline Lock 10 ML Syringe IV ×2 (20:34→20:36)
[2024-03-13 20:35] LABS: International Normalized Ratio 1.1; Prothrombin Time (Protime)PT. 13.7 SECONDS (11.7-14.9)
[2024-03-13] MEDS: TENECTEPLASE 2448 MG IV (20:35)
[2024-03-13 20:36] LABS: Partial Thromboplast Time 28.4 Seconds (24.1-36.2)
[2024-03-13 20:44] LABS: Anion Gap 2 (5-15); BUN 25 mg/dL (7-18); Calcium,Total 8.4 mg/dL (8.5-10.1); Chloride 107 mmol/L (98-107); EST Glomerular Filtration Rate 78 mL/min (>60); Est Glom Filt Rate - Afr Amer 94 mL/min (>60); Estimated Creatinine Clearance 64.22 ml/min; Glucose 114 mg/dL (74-106); Potassium 3.8 mmol/L (3.5-5.1); Sodium Level 141 mmol/L (136-145); Troponin-I HS 4 pg/mL (3.0-78.0)
[2024-03-13] MEDS: 0.9% Normal Saline (1000mL) 1,000 ML 100 ML IV (21:10)
--- NOTE | 2024-03-13 21:19 | ED.RN ---
NEUROLOGIST FROM [facility] HAD BEEN DISCONNECTED WITH [facility]. NEUROLOGIST CALLED ER AND SOKE WITH DR. WEBER IN REGARDS TO TRANSFER. PER DR. WEBER- WE WILL GIVE TNK AND TRANSPORT PATIENT TO [facility]. WE HAVE A HELICOPTER ON STAND BY AND WE ARE WAITING FOR ACCEPTANCE. MESSAGE RELAYED TO AND SON AT BEDSIDE
[2024-03-13 22:17] LABS: Bedside Glucose 140 mg/dL (74-106)
== END 2024-03-13 22:05 | disposition short-term general hospital (02) ==
PROVIDERS: Emergency Provider Emergency Medicine; PCP Family Medicine; Visit Provider Emergency Medicine
DX: I63.511 Cerebral infarction due to unspecified occlusion or stenosis of right middle cerebral artery (principal); Z87.891 Personal history of nicotine dependence
CPT/HCPCS: 51702; 70450; 70496; 70498; 80048; 82962; 84484; 85025; 85610; 85730; 93005; 96361; 96374; 96376; 99285; J3101; Q9967; A4216; J2405